=== PATIENT | female | born 1995 | race Caucasian/White ===

== ENCOUNTER 2024-05-07 21:03 | Observation (INO) | payer SELFPAY ==
[2024-05-07] MEDS: Acetaminophen 325 MG Tab PO ONE (21:45)
[2024-05-07 22:03] LABS: BASOPHILS PERCENT AUTO 0.6 % (0.0-1.0); EOSINOPHILS PERCENT AUTO 0.4 % (1.0-3.0); HEMATOCRIT 37.3 % (37.0-47.0); HEMOGLOBIN 11.9 g/dL (12.0-16.0); LYMPHOCYTES PERCENT AUTO 22.1 % (20.5-50.1); MEAN CORPUSCULAR HGB CONC 31.9 g/dL (33.0-35.0); MEAN CORPUSCULAR VOLUME 84.8 fL (80-100); MONOCYTES PERCENT AUTO 8.9 % (2-8); PLATELET COUNT,PLT 262 10^3/uL (150-450)
[2024-05-07 22:23] LABS: ALANINE AMINOTRANSFERASE,ALT 18 U/L (14-59); ALBUMIN 2.8 g/dL (3.4-5.0); ALKALINE PHOSPHATASE 160 U/L (46-116); ANION GAP 16.7 mEq/L (7-13); ASPARTATE AMNIOTRANSFERASE,AST 12 U/L (15-37); BILIRUBIN TOTAL 0.3 mg/dL (0.2-1.0); BLOOD UREA NITROGEN,BUN 9 mg/dL (7-18); CALCIUM 9.6 mg/dL (8.5-10.1); CARBON DIOXIDE,CO2 26 mmol/L (21-32); CHLORIDE,CL 102 mmol/L (98-107); GLUCOSE RANDOM 106 mg/dL (70-99); LIPASE 36 U/L (16-77); POTASSIUM,K 3.7 mmol/L (3.5-5.1); PROTEIN TOTAL,TP 7.1 g/dL (6.4-8.2); SODIUM,NA 141 mmol/L (136-145)
[2024-05-07 22:25] LABS: A/G RATIO 0.65; ESTIMATED GFR 90 mL/min (>=60)
[2024-05-07] MEDS ORDERED: Tranexamic Acid 1,000 MG in Sodium Chloride 0.9% 100 ML IV PRN (22:30)
[2024-05-07] MEDS ORDERED: Ropivacaine 200 MG in Premix Bag 1 BAG EPIDUR SCH (22:30)
[2024-05-07] MEDS ORDERED: Morphine 10 MG/ML Syringe IM PRN (22:30)
[2024-05-07] MEDS ORDERED: Phenylephrine HCl In 0.9% NaCl 1 MG/10 ML Syringe IVPUSH PRN (22:30)
[2024-05-07] MEDS ORDERED: ePHEDrine 50 MG/ML SDV IVPUSH PRN (22:30)
[2024-05-07] MEDS ORDERED: Sodium Chloride 0.9% 10 ML Syringe FLUSH PRN (22:30)
[2024-05-07] MEDS ORDERED: Naloxone 2 MG/2 ML Syringe IVPUSH PRN (22:59)
[2024-05-07] MEDS: Lactated Ringers 1,000 ML IV SCH (23:15)
[2024-05-07] MEDS: Morphine 4 MG/ML Syringe IM ONE (23:15)
[2024-05-07] MEDS: Ondansetron 4 MG Tab.DIS ONE (23:43)
[2024-05-08] MEDS ORDERED: Naloxone 2 MG/2 ML Syringe IVPUSH PRN (00:28)
[2024-05-08] MEDS: fentaNYL 100 MCG/2 ML SDV IVPUSH ONE (00:40)
[2024-05-08] MEDS: fentaNYL 100 MCG/2 ML SDV IVPUSH PRN (02:45)
[2024-05-08] MEDS: Ondansetron 4 MG/2 ML SDV IVPUSH PRN (03:43)
[2024-05-08] MEDS: Calcium Carbonate 500 MG Tab.Chew PO PRN (06:20)
[2024-05-08] MEDS ORDERED: Sodium Chloride 0.9% 10 ML Syringe FLUSH SCH (09:00)
== END 2024-05-08 10:00 | disposition home or self-care (01) ==
LOC: DL.OBCHECK 21:03 → DL.OB 22:30
PROVIDERS: ADMIT Student in an Organized Health Care Education/Training Program; ATTEND Student in an Organized Health Care Education/Training Program
DX: O99.613 Diseases of the digestive system complicating pregnancy, third trimester (principal); K80.13 Calculus of gallbladder with acute and chronic cholecystitis with obstruction; O47.03 False labor before 37 completed weeks of gestation, third trimester; Z3A.36 36 weeks gestation of pregnancy
CPT/HCPCS: 36415; 76815; 80053; 83690; 85025; 96361; 96372; 96374; 96376; A9270; G0378; J2270; J2405; J3010; J7120

== ENCOUNTER 2024-05-23 02:01 | Inpatient (IN) | payer OTHER ==
[2024-05-23] MEDS ORDERED: Carboprost Tromethamine 250 MCG/1 ML Amp IM PRN (07:56)
[2024-05-23] MEDS ORDERED: Sodium Chloride 0.9% 10 ML Syringe FLUSH PRN (07:56)
[2024-05-23] MEDS ORDERED: Tranexamic Acid 1,000 MG in Sodium Chloride 0.9% 100 ML IV PRN (07:56)
[2024-05-23] MEDS ORDERED: Methylergonovine 0.2 MG/1 ML Amp IM PRN (07:56)
[2024-05-23] MEDS ORDERED: Oxytocin/Lactated Ringers 30 UNIT/500 ML BAG IV SCH (08:00)
[2024-05-23 08:21] LABS: HEMATOCRIT 36.3 % (37.0-47.0); HEMOGLOBIN 11.8 g/dL (12.0-16.0); MEAN CORPUSCULAR HEMOGLOBIN 27.1 pg (27.0-34.0); MEAN CORPUSCULAR HGB CONC 32.5 g/dL (33.0-35.0); MEAN CORPUSCULAR VOLUME 83.3 fL (80-100); RED BLOOD CELL COUNT 4.36 10^6/uL (4.2-5.4); WHITE BLOOD CELL COUNT,WBC 11.1 10^3/uL (5.0-10.0)
[2024-05-23] MEDS: Misoprostol 50 MCG (1/2 of 100 MCG) Tab PO SCH (08:41)
[2024-05-23] MEDS: Calcium Carbonate 500 MG Tab.Chew PO PRN (15:18)
[2024-05-23] MEDS: Oxytocin/Normal Saline 30 UNIT/500 ML BAG IV SCH (20:41)
[2024-05-23] MEDS: Lactated Ringers 1,000 ML IV SCH (20:41)
[2024-05-24] MEDS: hydrOXYzine HCl 25 MG Tab PO ONE (00:06)
[2024-05-24] MEDS: Misoprostol 25 MCG (1/4 of 100 MCG) Tab VAG PRN (08:21)
[2024-05-24] MEDS: Docusate Sodium 100 MG Cap PO ONE (12:37)
[2024-05-24] MEDS: fentaNYL 100 MCG/2 ML SDV IVPUSH PRN (22:11)
[2024-05-25] MEDS: Nalbuphine HCl 10 MG/ 1ML Amp IM ONE (00:10)
[2024-05-25] MEDS: Lactated Ringers 1,000 ML IV ONE (03:00)
[2024-05-25] MEDS: Ondansetron 4 MG/2 ML SDV IVPUSH PRN (03:10)
[2024-05-25] MEDS ORDERED: Lidocaine 2% 20 ML MDV ONE ×2 (16:29→19:11)
[2024-05-25] MEDS ORDERED: Oxytocin 10 Units/1 ML SDV ONE (16:31)
[2024-05-25] MEDS ORDERED: ceFAZolin 1 GM Vial ONE (16:32)
[2024-05-25] MEDS ORDERED: Tranexamic Acid 1,000 MG/10 ML Vial ONE (16:32)
[2024-05-25] MEDS: Lidocaine 1% 30 ML SDV INJECT ONE (17:55)
[2024-05-25] MEDS ORDERED: Propofol 200 MG/20 ML SDV ONE (17:57)
[2024-05-25] MEDS ORDERED: Naloxone 2 MG/2 ML Syringe IVPUSH PRN (18:36)
[2024-05-25] MEDS ORDERED: Tranexamic Acid 1,000 MG in Sodium Chloride 0.9% 100 ML IV PRN (18:36)
[2024-05-25] MEDS ORDERED: Acetaminophen 325 MG Tab PO PRN (18:36)
[2024-05-25] MEDS ORDERED: diphenhydrAMINE 50 MG/ML SDV IVPUSH PRN (18:36)
[2024-05-25] MEDS ORDERED: Methylergonovine 0.2 MG/1 ML Amp IM PRN (18:36)
[2024-05-25] MEDS ORDERED: Ondansetron 4 MG/2 ML SDV IVPUSH PRN (18:36)
[2024-05-25] MEDS ORDERED: ePHEDrine 50 MG/ML SDV IVPUSH PRN (18:36)
[2024-05-25] MEDS ORDERED: Misoprostol 100 MCG Tab RECTAL PRN (18:36)
[2024-05-25] MEDS ORDERED: Carboprost Tromethamine 250 MCG/1 ML Amp IM PRN (18:36)
[2024-05-25] MEDS ORDERED: Ketorolac 30 MG/ML SDV ONE (19:11)
[2024-05-25] MEDS: Lactated Ringers 1,000 ML IV SCH (19:13)
[2024-05-25] MEDS: Docusate Sodium 100 MG Cap PO PRN (21:16)
[2024-05-25] MEDS: Acetaminophen 325 MG Tab PO PRN (21:16)
[2024-05-25] MEDS: Simethicone 80 MG Tab.Chew PO SCH (21:16)
[2024-05-25] MEDS: Ketorolac 30 MG/ML SDV IVPUSH SCH (23:45)
[2024-05-26] MEDS: Acetaminophen/oxyCODONE 325-5 MG Tab PO PRN ×2 (02:41→08:56)
[2024-05-26] MEDS: Prenatal Multivitamin with Calcium/Folic Acid/Iron Tab PO SCH (08:56)
[2024-05-26 13:26] LABS: HEMATOCRIT 34.4 % (37.0-47.0)
[2024-05-26] MEDS: Ibuprofen 800 MG Tab PO SCH (18:10)
[2024-05-27] MEDS ORDERED: fentaNYL 100 MCG/2 ML SDV IV ONE (10:21)
[2024-05-27] MEDS ORDERED: fentaNYL 100 MCG/2 ML SDV EPIDUR ONE (10:25)
== END 2024-05-27 13:30 | disposition home or self-care (01) | DRG 787 ==
LOC: EDSTATUS 02:01 → UNDOADMOB 07:49 → DL.OB 07:49 → OBSVTOIN 17:35 → INTOOBSV 17:35 → OBSVTOIN 05-25 17:35 → UNDODISIN 05-27 13:30
PROVIDERS: ADMIT Student in an Organized Health Care Education/Training Program; ATTEND Student in an Organized Health Care Education/Training Program
PROC: 10D00Z1 Extraction of Products of Conception, Low, Open Approach (ICD-10-PCS; principal; 2024-05-23)
PROC: 10907ZC Drainage of Amniotic Fluid, Therapeutic from Products of Conception, Via Natural or Artificial Opening (ICD-10-PCS; 2024-05-23)
PROC: 3E0DXGC Introduction of Other Therapeutic Substance into Mouth and Pharynx, External Approach (ICD-10-PCS; 2024-05-23)
DX: O99.62 Diseases of the digestive system complicating childbirth (principal); K80.11 Calculus of gallbladder with chronic cholecystitis with obstruction; Z3A.39 39 weeks gestation of pregnancy; Z37.0 Single live birth
CPT/HCPCS: 36415; 51702; 59409; 85014; 85018; 85027; A9270-GY; C1726; J1885; J2300; J2405; J2590; J3010; J7120

== ENCOUNTER 2024-07-18 23:41 | Emergency (ER) | payer OTHER ==
[2024-07-19 00:21] LABS: BASOPHILS PERCENT AUTO 0.4 % (0.0-1.0); HEMATOCRIT 41.3 % (37.0-47.0); HEMOGLOBIN 13.1 g/dL (12.0-16.0); LYMPHOCYTES PERCENT AUTO 30.5 % (20.5-50.1); MEAN CORPUSCULAR HEMOGLOBIN 25.6 pg (27.0-34.0); MEAN CORPUSCULAR HGB CONC 31.7 g/dL (33.0-35.0); MEAN CORPUSCULAR VOLUME 80.8 fL (80-100); MONOCYTES PERCENT AUTO 7.2 % (2-8); NEUTROPHILS PERCENT AUTO 60.9 % (42.2-75.2); PLATELET COUNT,PLT 366 10^3/uL (150-450); RED BLOOD CELL COUNT 5.11 10^6/uL (4.2-5.4); WHITE BLOOD CELL COUNT,WBC 14.1 10^3/uL (5.0-10.0)
[2024-07-19 00:30] LABS: A/G RATIO 0.9; ALANINE AMINOTRANSFERASE,ALT 124 U/L (14-59); ALBUMIN 3.8 g/dL (3.4-5.0); ALKALINE PHOSPHATASE 143 U/L (46-116); ANION GAP 14.8 mEq/L (7-13); ASPARTATE AMNIOTRANSFERASE,AST 90 U/L (15-37); BILIRUBIN TOTAL 0.3 mg/dL (0.2-1.0); BLOOD UREA NITROGEN,BUN 18 mg/dL (7-18); CALCIUM 9.9 mg/dL (8.5-10.1); CARBON DIOXIDE,CO2 27 mmol/L (21-32); CHLORIDE,CL 102 mmol/L (98-107); GLUCOSE RANDOM 100 mg/dL (70-99); POTASSIUM,K 3.8 mmol/L (3.5-5.1); PROTEIN TOTAL,TP 7.9 g/dL (6.4-8.2); SODIUM,NA 140 mmol/L (136-145)
[2024-07-19 00:33] LABS: ESTIMATED GFR 79 mL/min (>=60)
[2024-07-19] MEDS: fentaNYL 100 MCG/2 ML SDV IVPUSH ONE (00:54)
[2024-07-19] MEDS: Ketorolac 30 MG/ML SDV IVPUSH ONE (00:54)
[2024-07-19] MEDS: Sodium Chloride 0.9% 1,000 ML IV ONE (00:55)
[2024-07-19] MEDS ORDERED: Sodium Chloride 0.9% 1,000 ML IV SCH (01:00)
== END 2024-07-19 02:20 | disposition home or self-care (01) ==
LOC: DL.ED 23:41
DX: K81.9 Cholecystitis, unspecified (principal); Z79.899 Other long term (current) drug therapy
CPT/HCPCS: 36415; 80053; 85025; 96361; 96374; 96375; 99284; J1885; J3010; J7030; 99283

== ENCOUNTER 2024-08-19 20:01 | Emergency (ER) | payer OTHER | END 2024-08-19 20:34 | disposition home or self-care (01) | LOC: DL.ED 20:01 | DX: R10.11 Right upper quadrant pain (principal) | CPT/HCPCS: 99282; 99283 ==